=== PATIENT | female | born 1975 | race Caucasian/White ===

== ENCOUNTER 2017-07-06 01:05 | Emergency (ER) | payer BC ==
[~2017-07-06] VITALS: Ht 175.3 cm; Wt 79.4 kg
[2017-07-06 01:43] LABS: BILIRUBIN,URINE NEG (NEG); CLARITY,URINE CLEAR; COLOR,URINE YELLOW; GLUCOSE,URINE NEG (NEG)
[2017-07-06 01:44] LABS: BACTERIA,URINE FEW /HPF (0-FEW); NITRITE,URINE NEG (NEG); RBC,URINE >40 /HPF (0-2); SQUAMOUS EPITHELIAL CELL,UR MANY /LPF; UROBILINOGEN,URINE 0.2 mg/dL (0.2 mg/dL); WBC,URINE OCC /HPF (0-4)
[2017-07-06] MEDS ORDERED: ONDANSETRON ODT 4 MG TAB.RAPDIS ONE (01:44)
[2017-07-06] MEDS ORDERED: ONDANSETRON ODT 4 MG TAB.RAPDIS PO ONE ×2 (01:45→02:15)
[2017-07-06 02:01] LABS: U PREG PATIENT NEGATIVE (NEG)
[2017-07-06] MEDS ORDERED: TAMSULOSIN 0.4 MG CAP.ER.24H. PO ONE ×2 (02:15)
--- NOTE | 2017-07-06 02:22 | RAD ---
INDICATION: Left flank pain, hx of kidney stones in the past
COMPARISON: None. TECHNIQUE: Axial CT images were obtained through the abdomen and pelvis without intravenous contrast. Limited assessment of solid organ structures and vasculature secondary to lack of intravenous contrast. One or more of the following individualized dose reduction techniques were utilized for this examination: 1. Automated exposure control; 2. Adjustment of the mA and/or kV according to patient size; 3. Use of iterative reconstruction technique. FINDINGS: Airspace opacity with nodularity at right lung base. Partially visualized. Moderate calcific atherosclerosis without abdominal aortic aneurysm. No intrahepatic bile duct dilation. No definite peripancreatic edema. Spleen unremarkable. Numerous bilateral nonobstructive renal stones. Left-sided hydronephrosis and hydroureter. There are several calcifications in the bilateral pelvis with one of them near the expected location of the left distal ureter measuring up to about 3 to 4 mm. Urinary bladder is largely decompressed. The suspected appendix measures approximately 5 mm. No dilated loops of bowel to suggest obstruction. Small fat-containing umbilical hernia. Degenerative changes of the spine with osteophyte formation and disc protrusions with central canal neural foraminal stenosis. IMPRESSION: Left-sided hydronephrosis and hydroureter with suspected distal ureter stone. Focal opacity at right lung base. Could be secondary to a region of pneumonia or inflammatory etiologies. Aspiration is also within the differential as well as a site of alveolar hemorrhage. Would obtain a follow-up examination to ensure this resolves to exclude neoplastic causes. Electronically signed by: Warner Hanley MD (07/06/2017 2:19 AM) [facility]
[2017-07-06 02:30] VITALS: BP 119/78
[2017-07-06] MEDS ORDERED: ONDANSETRON 4MG ODT 4TABLET STARTPACK. PO ONE ×3 (02:35→02:45)
[2017-07-06] MEDS ORDERED: FLUT12AE IH (02:36)
[2017-07-06] MEDS ORDERED: TAMS0.4C97 PO (02:36)
--- NOTE | 2017-07-06 02:39 | PHYS DOC ---
Past History Past Medical History: Kidney Stones Past Surgical History: No Surgical History Alcohol Use: None Drug Use: None Adult General Chief Complaint Chief Complaint: FLANK PAIN HPI HPI Patient is a 41 year old F who presents with left flank pain starting approximately 5 hours prior to arrival. She describes her pain as constant sharp and fluctuating in intensity. She does have a history of kidney stones and feels that this is similar to previous kidney stones. She has not had urinary difficulty prior to onset of symptoms. She does describe nausea with minimal vomiting. She has no other associated symptoms at this time. She has no exacerbating or alleviating factors. Review of Systems Review of Systems Constitutional: Denies fever or chills [] Eyes: Denies change in visual acuity, redness, or eye pain [] HENT: She describes ongoing cough over the last 1-2 weeks after an upper respiratory infection Respiratory: Denies cough or shortness of breath [] Cardiovascular: No additional information not addressed in HPI [] GI: Negative except history of present illness : Denies dysuria or hematuria [] Musculoskeletal: Denies back pain or joint pain [] Integument: Denies rash or skin lesions [] Neurologic: Denies headache, focal weakness or sensory changes [] Endocrine: Denies polyuria or polydipsia [] Family History Family History Noncontributory Current Medications Current Medications Current Medications Medications (Trade) Dose Ordered Sig/Elke Start Time Stop Time Status Last Admin Dose Admin Ondansetron HCl (Zofran Odt) 4 mg 1X ONCE 07/06/17 02:15 07/06/17 02:16 UNV 07/06/17 02:13 4 MG Tamsulosin HCl (Flomax) 0.4 mg 1X ONCE 07/06/17 02:15 07/06/17 02:16 UNV 07/06/17 02:16 0.4 MG Allergies Allergies Allergies Coded Allergies Type Severity Reaction Last Updated Verified Sulfa (Sulfonamide Antibiotics) Allergy Intermediate 07/06/17 Yes Physical Exam Physical Exam Constitutional: Well developed, well nourished, no acute distress, non-toxic appearance. [] HENT: Normocephalic, atraumatic, bilateral external ears normal, oropharynx moist, no oral exudates, nose normal. [] Eyes: PERRLA, EOMI, conjunctiva normal, no discharge. [] Neck: Normal range of motion, no tenderness, supple, no stridor. [] Cardiovascular:Heart rate regular rhythm, no murmur [] Lungs & Thorax: Bilateral breath sounds clear to auscultation [] Abdomen: Bowel sounds normal, soft, no masses, no pulsatile masses. [] Mild left lower quadrant tenderness to palpation Skin: Warm, dry, no erythema, no rash. [] Back: Left-sided flank pain Extremities: No tenderness, no cyanosis, no clubbing, ROM intact, no edema. [] Neurologic: Alert and oriented X 3, normal motor function, normal sensory function, no focal deficits noted. [] Psychologic: Affect normal, judgement normal, mood normal. [] Current Patient Data Vital Signs Vital Signs Date Time Temp Pulse Resp B/P (MAP) Pulse Ox O2 Delivery O2 Flow Rate FiO2 07/06/17 01:05 98.0 90 18 99 Room Air Lab Results Laboratory Tests Test 07/06/17 01:12 Urine Collection Type Unknown Urine Color Yellow Urine Clarity Clear Urine pH 7.0 Urine Specific Sandoval 1.020 Urine Protein Neg (NEG-TRACE) Urine Glucose (UA) Neg mg/dL (NEG) Urine Ketones (Stick) 15 mg/dL (NEG) Urine Blood Large (NEG) Urine Nitrite Neg (NEG) Urine Bilirubin Neg (NEG) Urine Urobilinogen Dipstick 0.2 mg/dL (0.2 mg/dL) Urine Leukocyte Esterase Neg (NEG) Urine RBC >40 /HPF (0-2) Urine WBC Occ /HPF (0-4) Urine Squamous Epithelial Cells Many /LPF Urine Bacteria Few /HPF (0-FEW) Urine Test Negative (NEG) EKG EKG [] Radiology/Procedures Radiology/Procedures CT abdomen and pelvis noncontrast Impressions: 3-4 mm nephrolithiasis at the UVJ Course & Med Decision Making Course & Med Decision Making Pertinent Labs and Imaging studies reviewed. (See chart for details) IV, labs, and pain medication were refused. Barb states that she came to the emergency room because she wanted to know if her stone would be able to be passed without intervention. It was explained that there are no guarantees the stone can pass without intervention. Barb expressed understanding. Dragon Disclaimer Dragon Disclaimer This chart was dictated in whole or in part using Voice Recognition software in a busy, high-work load, and often noisy Emergency Department environment. It may contain unintended and wholly unrecognized errors or omissions. Departure Departure: Impression: Primary Impression: Left nephrolithiasis Additional Impression: Bronchitis Disposition: 01 HOME, SELF-CARE Condition: STABLE Referrals: IDALIA NGO DO (PCP) Patient Instructions: Acute Bronchitis, Diet for Kidney Stones, Kidney Stones Additional Instructions: Barb was seen in the emergency department for left flank pain. No emergency medical condition was found on history or physical exam. She was found to have a 3-4 mm left-sided kidney stone. She was given a prescription for Flomax and Zofran for nausea. She is advised take Flomax until she passes her stone. She was also found to have symptoms of bronchitis. She was given a prescription for inhaled steroids and advised to use nasal saline rinses regularly. She was advised to return to the emergency room if she develops new or worsening symptoms. She was also advised to follow-up with her primary care doctor as needed for further management. Scripts Tamsulosin Hcl (FLOMAX) 0.4 Mg Cap.er.24h 1 CAP PO DAILY for 14 Days, #14 CAP 11 Refills Prov: KAREN VIGIL MD 07/06/17 Fluticasone Propionate (FLOVENT 110MCG HFA) 12 Gm Aer.w.adap 2 PUFF IH BID for 7 Days, #1 INHALER 2 Refills Prov: KAREN VIGIL MD 07/06/17 Problem Qualifiers KAREN VIGIL MD Jul 06, 2017 02:39
== END 2017-07-06 02:45 | disposition home or self-care (01) ==
LOC: ER 01:05
DX: N20.0 Calculus of kidney (principal); J40 Bronchitis, not specified as acute or chronic; Z87.442 Personal history of urinary calculi; Z88.2 Allergy status to sulfonamides
CPT/HCPCS: 74176; 81001; 81025; 99285; Q0162

== ENCOUNTER → 2019-04-20 | Outpatient (CLI) | payer BC ==
[~2019-04-20] MED LIST: FLUT12AE IH; TAMS0.4C97 PO
--- NOTE | 2019-04-22 09:45 | RAD ---
DATE: 04/22/2019. EXAM: MAMMO [place] SCREENING BILATERAL HISTORY: Routine screening. COMPARISON: Previous mammogram from 2016. This study was interpreted with the benefit of Computerized Aided Detection (CAD). FINDINGS: Breast Density: DENSE The breast Parenchyma is dense, which could reduce the sensitivity of mammography. Breast parenchyma level density D.. The skin and nipples are within normal limits. No suspicious calcifications, spiculated mass or area of architectural distortion. IMPRESSION: No mammographic evidence of malignancy. BI-RADS CATEGORY: 2 BENIGN FINDING(S) RECOMMENDED FOLLOW-UP: 12M 12 MONTH FOLLOW-UP PQRS compliance statement: Patient information was entered into a reminder system with a target due date for the next mammogram. Mammography is a sensitive method for finding small breast cancers, but it does not detect them all and is not a substitute for careful clinical examination. A negative mammogram does not negate a clinically suspicious finding and should not result in delay in biopsying a clinically suspicious abnormality. "Our facility is accredited by the [employer] Mammography Program."
== END | disposition home or self-care (01) ==
LOC: MAMMO 14:54
PROVIDERS: ATTEND Registered Nurse
DX: Z12.31 Encounter for screening mammogram for malignant neoplasm of breast (principal)
CPT/HCPCS: 77063; 77067